=== PATIENT | female | born 1975 | race Caucasian/White ===

== ENCOUNTER 2018-12-13 21:03 | Emergency (ER) | payer OTHER ==
[~2018-12-13] VITALS: Ht 162.6 cm; Wt 82.6 kg
[2018-12-13 21:06] VITALS: BP 134/86
--- NOTE | 2018-12-13 21:07 | NUR ---
PT TAKEN TO BED 11
--- NOTE | 2018-12-13 21:35 | NUR ---
43 y/o F presented to ED with c/o pelvic pain x1 week. AAOx4. Per pt, " i had this a month ago but it went away. today it was just worse". lower abdomen tender to touch. c/o dysuria and hematuria. Bedrails x2 up. Family at bedtime. ERMD notified. Will continue to monitor.
[2018-12-13 21:45] LABS: APPEARANCE,URINE SL CLOUDY (CLEAR); BILIRUBIN,URINE 1+ (NEGATIVE); BLOOD, URINE TRACE-I (NEGATIVE); COLOR,URINE YELLOW (YELLOW); LEUKOCYTE ESTERASE ,URINE 2+ (NEGATIVE); NITRITE, URINE NEGATIVE (NEGATIVE); UGLUCOSE NEGATIVE (NEGATIVE)
[2018-12-13 22:01] LABS: RBC,URINE 0-5 /HPF (0-5)
[2018-12-13 22:02] LABS: WBC,URINE 16-25 (MOD) /HPF (0-5)
--- NOTE | 2018-12-13 23:01 | NUR ---
Patient discharged with v/s stable. Written and verbal after care instructions given and explained. Patient alert, oriented and verbalized understanding of instructions. Ambulatory with steady gait. All questions addressed prior to discharge. ID band removed. Patient advised to follow up with PMD. Rx of Pyridium and Keflex given. Patient educated on indication of medication including possible reaction and side effects. Opportunity to ask questions provided and answered.
[2018-12-18 06:13] LABS: CHLAMYDIA TRACHOMATIS AMP DNA Negative (Negative)
== END 2018-12-13 23:01 | disposition home or self-care (01) ==
LOC: MED 21:03
DX: N39.0 Urinary tract infection, site not specified (principal)
CPT/HCPCS: 36415; 81001; 81025; 87070; 87086; 87205; 87210; 87491; 99283

== ENCOUNTER 2019-03-18 19:39 | Emergency (ER) | payer OTHER ==
[~2019-03-18] VITALS: Ht 162.6 cm; Wt 81.6 kg
[2019-03-18 19:49] VITALS: BP 139/89
--- NOTE | 2019-03-18 19:51 | NUR ---
TO LOBBY A/W BED, AMBULATORY
--- NOTE | 2019-03-18 20:04 | NUR ---
43F C/O POSSIBLE SPIDER BITE TO MID LOWER BACK. STATES REDNESS, SWELLING, PAIN ON HER BACK SINCE MONDAY. 2CMX1.5CM ERYTHEMATOUS AND EDEMATOUS LESION ON MID LOWER BACK NOTED. HX NONE RX NONE ALL NKDA
--- NOTE | 2019-03-18 20:44 | NUR ---
Patient discharged with v/s stable. Written and verbal after care instructions given and explained. Patient alert, oriented and verbalized understanding of instructions. Ambulatory with steady gait. All questions addressed prior to discharge. ID band removed. Patient advised to follow up with PMD. Rx of keflex and ibuprofen given. Patient educated on indication of medication including possible reaction and side effects. Opportunity to ask questions provided and answered.
[2019-03-18 20:45] VITALS: BP 139/89
== END 2019-03-18 20:44 | disposition home or self-care (01) ==
LOC: MED 19:39
DX: L03.312 Cellulitis of back [any part except buttock and flank] (principal); F17.210 Nicotine dependence, cigarettes, uncomplicated
CPT/HCPCS: 99283

== ENCOUNTER 2021-09-09 17:55 | Emergency (ER) | payer OTHER ==
[~2021-09-09] VITALS: Ht 162.6 cm; Wt 99.1 kg
[2021-09-09 18:02] VITALS: BP 164/89
--- NOTE | 2021-09-09 18:08 | NUR ---
PT AMB TO BED 7.
[2021-09-09] MEDS ORDERED: LIDOCAINE MPF 1% 10 MG/ML VIAL INJ ONE (18:15)
[2021-09-09] MEDS ORDERED: CEPH500C16 PO (18:29)
[2021-09-09 18:49] VITALS: BP 164/89
== END 2021-09-09 18:49 | disposition home or self-care (01) ==
LOC: MED 17:55
DX: L02.211 Cutaneous abscess of abdominal wall (principal); Z79.899 Other long term (current) drug therapy
CPT/HCPCS: 99283; J2001

== ENCOUNTER 2021-10-11 09:07 | Emergency (ER) | payer OTHER ==
[~2021-10-11] VITALS: Ht 162.6 cm; Wt 97.5 kg
[~2021-10-11 09:07] MED LIST: CEPH500C16 PO
[2021-10-11 09:31] VITALS: BP 134/78
--- NOTE | 2021-10-11 10:04 | NUR ---
DR. MONTIEL EVALUATING PATIENT AT BEDSIDE
[2021-10-11] MEDS ORDERED: CEPH-588 PO (10:09)
[2021-10-11] MEDS ORDERED: PHEN-1877 PO (10:09)
[2021-10-11 10:20] VITALS: BP 134/78
--- NOTE | 2021-10-11 10:20 | NUR ---
Patient discharged with v/s stable. Written and verbal after care instructions ABOUT UTI given and explained. Patient alert, oriented and verbalized understanding of instructions. Ambulatory with steady gait. All questions addressed prior to discharge. ID band removed. Patient advised to follow up with PMD. Rx of KEFLEX AND PYRIDIUM given. Patient educated on indication of medication including possible reaction and side effects. Opportunity to ask questions provided and answered.
--- NOTE | 2021-10-11 10:23 | NUR ---
The patient's care was reviewed and supervised by Brianna Jackson RN.
== END 2021-10-11 10:20 | disposition home or self-care (01) ==
LOC: MED 09:07
DX: N39.0 Urinary tract infection, site not specified (principal)
CPT/HCPCS: 81002; 81025; 99283

== ENCOUNTER 2022-06-06 01:48 | Emergency (ER) | payer OTHER ==
[~2022-06-06] VITALS: Ht 162.6 cm; Wt 88.5 kg
[~2022-06-06 01:48] MED LIST changes: +CEPH-588 PO; +PHEN-1877 PO
[2022-06-06] MEDS ORDERED: TAM75 PO (01:58)
[2022-06-06 02:03] VITALS: BP 141/92
--- NOTE | 2022-06-06 02:16 | NUR ---
cc of cough, running nose, fever, body ache since today md sidhu: none allergy: none
[2022-06-06 02:28] VITALS: BP 141/92
--- NOTE | 2022-06-06 02:31 | NUR ---
Patient discharged with v/s stable by ermd. Written and verbal after care instructions given and explained. Patient alert, oriented and verbalized understanding of instructions. Ambulatory with steady gait. All questions addressed prior to discharge. ID band removed. Patient advised to follow up with PMD. Rx of tamiflu 75mg po given. Patient educated on indication of medication including possible reaction and side effects. Opportunity to ask questions provided and answered.
== END 2022-06-06 02:31 | disposition home or self-care (01) ==
LOC: MED 01:48
DX: R05.9 Cough, unspecified (principal); Z20.822 Contact with and (suspected) exposure to COVID-19; Z79.899 Other long term (current) drug therapy
CPT/HCPCS: 99283

== ENCOUNTER 2022-09-10 17:39 | Emergency (ER) | payer OTHER ==
[~2022-09-10] VITALS: Ht 162.6 cm; Wt 95.3 kg
[~2022-09-10 17:39] MED LIST changes: +TAM75 PO
[2022-09-10 17:42] VITALS: BP 147/90
--- NOTE | 2022-09-10 17:46 | NUR ---
Patient ambulated to bed 7 with steady gait.
--- NOTE | 2022-09-10 17:48 | NUR ---
Dr. Mast re-evaluating patient at bedside.
[2022-09-10] MEDS ORDERED: KETOROLAC 30 MG/ML VIAL IVP ONE (17:50)
--- NOTE | 2022-09-10 18:11 | NUR ---
Patient refused IV and IV meds. ERMD made aware.
[2022-09-10 18:36] LABS: BASOPHILS % (AUTO) 0.5 % (0.0-2.0); EOSINOPHILS # (AUTO) 0.1 K/uL (0-0.4); EOSINOPHILS % (AUTO) 0.9 % (0.0-4.0); HEMATOCRIT 40.5 % (36-48); HEMOGLOBIN 13.5 g/dL (12.0-16.0); LYMPHOCYTES # (AUTO) 1.4 K/uL (2.5-16.5); LYMPHOCYTES % (AUTO) 21.1 % (20.5-51.1); MEAN CORPUSCULAR HEMOGLOBIN 27 pg (27-31); MEAN CORPUSCULAR HGB CONC 33 g/dL (33-37); MEAN CORPUSCULAR VOLUME 82.2 fL (80-94); MONOCYTES # (AUTO) 0.6 K/uL (0.8-1.0); MONOCYTES % (AUTO) 8.5 % (1.7-9.3); NEUTROPHILS # (AUTO) 4.7 K/uL (1.8-7.7); PLATELET COUNT (AUTO) 175 K/uL (140-450); RED BLOOD CELL COUNT(AUTO) 4.93 MIL/uL (4.20-5.40); RED CELL DISTRIBUTION WIDTH 14.1 % (11.6-13.7); WHITE BLOOD COUNT (AUTO) 6.8 K/uL (4.8-10.8)
[2022-09-10 18:55] LABS: ALBUMIN 4.2 g/dL (3.4-5.0); ANION GAP 15.1 (8-16); ASPARTATE AMINOTRANSFERASE 43 U/L (15-37); CARBON DIOXIDE 26.8 mmol/L (21-32); CHLORIDE 103 mmol/L (98-107); CREATININE 0.8 mg/dL (0.6-1.3); GFR ARICAN-AMERICAN 100 mL/min (>90); GLUCOSE 97 mg/dL (74-106); POTASSIUM 3.9 mmol/L (3.5-5.1); SODIUM SERUM 141 mmol/L (136-145); TOTAL BILIRUBIN 0.6 mg/dL (0.0-1.0); UREA NITROGEN, BLOOD 15 mg/dL (7-18)
--- NOTE | 2022-09-10 19:08 | NUR ---
Dr. Mast re-evaluating patient at bedside.
--- NOTE | 2022-09-10 19:18 | NUR ---
Report given to JAYA Estes for transfer of care.
--- NOTE | 2022-09-10 20:15 | NUR ---
Patient taken to CT scan via gurney.
--- NOTE | 2022-09-10 20:24 | NUR ---
PT RETURN FROM CT
[2022-09-10 21:21] VITALS: BP 142/91
--- NOTE | 2022-09-10 21:49 | NUR ---
Dr. Mast at bedside
[2022-09-10] MEDS ORDERED: NAPR-54 PO (22:07)
[2022-09-10] MEDS ORDERED: CYCL-711 PO (22:07)
--- NOTE | 2022-09-10 22:33 | NUR ---
Patient discharged with v/s stable. Written and verbal after care instructions given and explained. Patient alert, oriented and verbalized understanding of instructions. Ambulatory with steady gait. All questions addressed prior to discharge. ID band removed. Patient advised to follow up with PMD. Rx of flexeril and naprosyn given. Opportunity to ask questions provided and answered.
== END 2022-09-10 22:33 | disposition home or self-care (01) ==
LOC: MED 17:39
DX: R07.9 Chest pain, unspecified (principal)
CPT/HCPCS: 36415; 71045; 71275; 80053; 83690; 83880; 84484; 84703; 85025; 93005; 99285; Q0092; Q9967; J1885

== ENCOUNTER 2024-05-08 17:42 | Emergency (ER) | payer SELFPAY ==
[~2024-05-08] VITALS: Ht 167.6 cm; Wt 93.0 kg
[~2024-05-08 17:42] MED LIST changes: +CYCL-711 PO; +NAPR-337 PO
[2024-05-08 17:51] VITALS: BP 121/85; PULSE 103; RESP 20; TEMP 100.1; O2SAT 97
[2024-05-08] MEDS: IBUPROFEN 600 MG TAB PO ONE (18:35)
[2024-05-08] MEDS: ACETAMINOPHEN EXTRA STRENGTH 500 MG TAB PO ONE (18:36)
[2024-05-08 19:02] LABS: APPEARANCE,URINE SLIGHTLY HAZY (CLEAR); BILIRUBIN,URINE 1+ (NEGATIVE); BLOOD, URINE 3+ (NEGATIVE); COLOR,URINE YELLOW (YELLOW); LEUKOCYTE ESTERASE ,URINE 1+ (NEGATIVE); NITRITE, URINE NEGATIVE (NEGATIVE); PROTEIN,URINE 1+ (NEGATIVE); UGLUCOSE NEGATIVE (NEGATIVE)
[2024-05-08 19:03] LABS: ICTOTEST NEGATIVE (NEGATIVE)
[2024-05-08 19:04] LABS: FLU A ANTIGEN negative (NEGATIVE); FLU B ANTIGEN NEGATIVE (NEGATIVE)
[2024-05-08 19:04] LABS: BACTERIA,URINE 3+ /HPF (None Seen); MUCUS,URINE 2+ /LPF (None Seen); RBC,URINE 50-80 /HPF (0-5); SQUAMOUS EPITHELIAL CELL,UR 80-100 /LPF (0-3 (FEW))
[2024-05-08 19:05] LABS: WBC,URINE 60-80 /HPF (0-5)
[2024-05-08] MEDS ORDERED: CEPH-588 PO (19:18)
[2024-05-08] MEDS ORDERED: BENZ100C6 PO (19:18)
[2024-05-08] MEDS ORDERED: IBUP-2213 PO (19:18)
[2024-05-08] MEDS ORDERED: BENZ-300 PO (19:18)
[2024-05-08] MEDS ORDERED: ACET500T99 PO (19:18)
[2024-05-08 19:30] VITALS: PULSE 77; RESP 14; O2SAT 98
== END 2024-05-08 19:30 | disposition home or self-care (01) ==
LOC: MED 17:42
DX: J06.9 Acute upper respiratory infection, unspecified (principal); B97.89 Other viral agents as the cause of diseases classified elsewhere; N39.0 Urinary tract infection, site not specified; Z20.822 Contact with and (suspected) exposure to COVID-19; Z79.899 Other long term (current) drug therapy
CPT/HCPCS: 71045; 81001; 87086; 99284